=== PATIENT | female | born 1985 | race Caucasian/White ===

== ENCOUNTER → 2018-03-10 | Outpatient (CLI) | payer OTHER ==
[~2018-03-10] MED LIST: APAP500 PO; DERMOPLAST SPRA56 ML; IBUPROFEN 400400 M1; LANOLIN56 GM; PRENATABS OBN1 EACH; SYNTHROID112 MCG; TUCKS MEDICATE1 EAC1
== END ==
LOC: HYPER 06:52
DX: T81.89XA Other complications of procedures, not elsewhere classified, initial encounter (principal); K62.3 Rectal prolapse; K12.1 Other forms of stomatitis; E88.40 Mitochondrial metabolism disorder, unspecified; F41.9 Anxiety disorder, unspecified; Z43.2 Encounter for attention to ileostomy; Y92.89 Other specified places as the place of occurrence of the external cause; Y83.8 Other surgical procedures as the cause of abnormal reaction of the patient, or of later complication, without mention of misadventure at the time of the procedure

== ENCOUNTER → 2018-03-24 | Outpatient (CLI) | payer OTHER | LOC: HYPER 06:28 | DX: T81.89XD Other complications of procedures, not elsewhere classified, subsequent encounter (principal); K63.2 Fistula of intestine; K12.1 Other forms of stomatitis; E88.40 Mitochondrial metabolism disorder, unspecified; F41.9 Anxiety disorder, unspecified; Y83.8 Other surgical procedures as the cause of abnormal reaction of the patient, or of later complication, without mention of misadventure at the time of the procedure ==

== ENCOUNTER → 2018-08-10 | Outpatient (CLI) | payer OTHER | LOC: HYPER 04-14 07:01 | DX: T81.89XD Other complications of procedures, not elsewhere classified, subsequent encounter (principal); E88.40 Mitochondrial metabolism disorder, unspecified; K63.2 Fistula of intestine; K12.1 Other forms of stomatitis; K21.9 Gastro-esophageal reflux disease without esophagitis; F41.9 Anxiety disorder, unspecified; Z43.2 Encounter for attention to ileostomy; Y83.8 Other surgical procedures as the cause of abnormal reaction of the patient, or of later complication, without mention of misadventure at the time of the procedure ==